=== PATIENT | male | born 1985 | race Caucasian/White ===

== ENCOUNTER 2019-10-16 15:44 | Emergency (ER) | payer SELFPAY ==
[~2019-10-16] VITALS: Ht 167.7 cm; Wt 69.1 kg
[2019-10-16 17:07] LABS: BASOPHILS % (AUTO) 0 % (0-10); EOSINOPHILS # (AUTO) 0.2 10^3/uL (0.0-0.3); EOSINOPHILS % (AUTO) 3 % (0-10); HEMATOCRIT 42 % (40-54); LYMPHOCYTES # (AUTO) 1.9 X 10^3 (1.0-4.0); LYMPHOCYTES % (AUTO) 24 % (12-44); MEAN CORPUSCULAR HEMOGLOBIN 32 PG (25-34); MEAN CORPUSCULAR HGB CONC 34 G/DL (32-36); MEAN CORPUSCULAR VOLUME 94 FL (80-99); MEAN PLATELET VOLUME 9.7 FL (7.4-10.4); MONOCYTES # (AUTO) 0.7 X 10^3 (0.0-1.0); MONOCYTES % (AUTO) 9 % (0-12); NEUTROPHILS # (AUTO) 4.9 X 10^3 (1.8-7.8); NEUTROPHILS % (AUTO) 64 % (42-75); PLATELET COUNT 191 10^3/uL (130-400); WHITE BLOOD COUNT 7.7 10^3/uL (4.3-11.0)
--- NOTE | 2019-10-16 17:15 | ED Integumentary General ---
General Chief Complaint: Skin/Wound Problems Stated Complaint: INGROWN HAIR LANCED/INFECTED Nursing Triage Note: Pt amb to triage with c/o wound to Rt suprapubic area. Pt reports on 10/11/19 & again on 10/14/19 he was seen @ [facility] where they lanced wound and presccribed ATX and pain medication. Pt reports serosanguinous drainage from wound bed. Denies fever, but reports chills. Source: patient Exam Limitations: no limitations History of Present Illness Date Seen by Provider: Oct 16, 2019 Time Seen by Provider: 16:42 Initial Comments 33-year-old male who was sent to the emergency room by Dr. Ndiaye's office. He reports that over the past week he's had a abscess that started as an infected hair on his right suprapubic area lanced twice. He is currently on clindamycin and Bactrim. He reports that he was postictal have an appointment at Dr. Ndiaye's office this afternoon but he was not in clinic. He currently has packing in the abscess. He reports suicidal and this drainage. Denies fevers, nausea, vomiting. Allergies and Home Medications Patient Home Medication List Home Medication List Reviewed: Yes Review of Systems Review of Systems Constitutional: see HPI; No chills, No fever Skin: see HPI, other (abscess with packing to suprapubic area.) All Other Systems Reviewed Negative Unless Noted: Yes Past Uxtzcna-Ayzanu-Fzgduf Hx Past Med/Social Hx: Reviewed Nursing Past Med/Soc Hx Patient Social History Alcohol Use: Denies Use Recreational Drug Use: Yes Drug of Choice: thc Smoking Status: Current Everyday Smoker Type Used: Cigarettes 2nd Hand Smoke Exposure: Yes Recent Foreign Travel: No Contact w/Someone Who Travel: No Recent Infectious Disease Expo: No Family Medical History Reviewed Nursing Family Hx Physical Exam Vital Signs Vital Signs - First Documented 10/16/19 16:14 Temp 36.8 Pulse 70 Resp 18 B/P (MAP) 131/88 (102) Pulse Ox 99 O2 Delivery Room Air Capillary Refill : Less Than 3 Seconds General Appearance: WD/WN, no apparent distress Cardiovascular: normal peripheral pulses, regular rate, rhythm, no edema, no gallop, no JVD, no murmur Respiratory: chest non-tender, lungs clear, normal breath sounds, no respiratory distress, no accessory muscle use Extremities: normal capillary refill Neurologic/Psychiatric: alert, normal mood/affect, oriented x 3 Skin: normal color, warm/dry Skin Problem Location: other (suprapubic) Skin Problem Character: abscess (minimal erythema. The packing was removed, the wound cavity was irrigated with normal saline and Betasept, and the packing was replaced half-inch iodoform 2.5 inches in length.) Progress/Results/Core Measures Results/Orders Lab Results Laboratory Tests Test 10/16/19 16:59 Range/Units White Blood Count 7.7 4.3-11.0 10^3/uL Red Blood Count 4.45 4.35-5.85 10^6/uL Hemoglobin 14.0 13.3-17.7 G/DL Hematocrit 42 40-54 % Mean Corpuscular Volume 94 80-99 FL Mean Corpuscular Hemoglobin 32 25-34 PG Mean Corpuscular Hemoglobin Concent 34 32-36 G/DL Red Cell Distribution Width 12.0 10.0-14.5 % Platelet Count 191 130-400 10^3/uL Mean Platelet Volume 9.7 7.4-10.4 FL Neutrophils (%) (Auto) 64 42-75 % Lymphocytes (%) (Auto) 24 12-44 % Monocytes (%) (Auto) 9 0-12 % Eosinophils (%) (Auto) 3 0-10 % Basophils (%) (Auto) 0 0-10 % Neutrophils # (Auto) 4.9 1.8-7.8 X 10^3 Lymphocytes # (Auto) 1.9 1.0-4.0 X 10^3 Monocytes # (Auto) 0.7 0.0-1.0 X 10^3 Eosinophils # (Auto) 0.2 0.0-0.3 10^3/uL Basophils # (Auto) 0.0 0.0-0.1 10^3/uL Sodium Level 138 135-145 MMOL/L Potassium Level 4.4 3.6-5.0 MMOL/L Chloride Level 105 98-107 MMOL/L Carbon Dioxide Level 22 21-32 MMOL/L Anion Gap 11 5-14 MMOL/L Blood Urea Nitrogen 21 H 7-18 MG/DL Creatinine 1.22 0.60-1.30 MG/DL Estimat Glomerular Filtration Rate > 60 BUN/Creatinine Ratio 17 Glucose Level 95 70-105 MG/DL Lactic Acid Level 1.09 0.50-2.00 MMOL/L Calcium Level 9.2 8.5-10.1 MG/DL Corrected Calcium 8.8 8.5-10.1 MG/DL Total Bilirubin 0.1 0.1-1.0 MG/DL Aspartate Amino Transf (AST/SGOT) 23 5-34 U/L Alanine Aminotransferase (ALT/SGPT) 20 0-55 U/L Alkaline Phosphatase 88 40-136 U/L Total Protein 7.2 6.4-8.2 GM/DL Albumin 4.5 3.2-4.5 GM/DL Micro Results Microbiology 10/16/19 Blood Culture - Preliminary, Resulted No growth 10/16/19 Blood Culture - Preliminary, Resulted No growth My Orders Orders - BRITTON ZHANG Cbc With Automated Diff (10/16/19 16:40) Comprehensive Metabolic Panel (10/16/19 16:40) Blood Culture (10/16/19 16:40) Ed Iv/Invasive Line Start (10/16/19 16:40) Lactic Acid Analyzer (10/16/19 16:40) Vital Signs/I&O 10/16/19 10/16/19 16:14 18:03 Temp 36.8 Pulse 70 101 Resp 18 19 B/P (MAP) 131/88 (102) 136/76 Pulse Ox 99 100 O2 Delivery Room Air Room Air Blood Pressure Mean: 102 POS Progress Progress Note : Time: 17:40 Progress Note I have seen and evaluated the patient. I've informed him of his laboratory findings. I did discuss the case with Dr. Martin and he recommends having the patient follow-up in his clinic in the next 2 days. Patient agrees with plan of care, plans for discharge, return precautions were given. Departure Impression Primary Impression: Abscess Disposition: 01 HOME, SELF-CARE Condition: Stable/Unchanged Departure-Patient Inst. Decision time for Depature: 17:51 Referrals: DOMINGO MARTIN DO Patient Instructions: Skin Abscess Add. Discharge Instructions: Continue medication as prescribed. Call Dr. Mirza office first thing tomorrow. Tylenol and motrin as needed for pain in addition to your prescribed pain medication. Return back to the emergency room for worsening symptoms or concerns as needed. All discharge instructions reviewed with patient and/or family. Voiced understanding. BRITTON ZHANG Oct 16, 2019 17:15 POS
[2019-10-16 17:35] LABS: ALANINE AMINOTRANSFERASE 20 U/L (0-55); ALBUMIN 4.5 GM/DL (3.2-4.5); ALKALINE PHOSPHATASE 88 U/L (40-136); BILIRUBIN,TOTAL 0.1 MG/DL (0.1-1.0); BUN/CREATININE RATIO 17; CALCIUM 9.2 MG/DL (8.5-10.1); CARBON DIOXIDE 22 MMOL/L (21-32); CHLORIDE 105 MMOL/L (98-107); CREATININE SERUM 1.22 MG/DL (0.60-1.30); GFR ESTIMATED > 60; GLUCOSE 95 MG/DL (70-105); POTASSIUM 4.4 MMOL/L (3.6-5.0); SODIUM 138 MMOL/L (135-145); TOTAL PROTEIN 7.2 GM/DL (6.4-8.2)
[2019-10-16 18:03] VITALS: BP 136/76
== END 2019-10-16 18:03 | disposition home or self-care (01) ==
LOC: ER 15:50
DX: L02.211 Cutaneous abscess of abdominal wall (principal); F17.210 Nicotine dependence, cigarettes, uncomplicated
CPT/HCPCS: 36415; 80053; 83605; 85025; 87040